=== PATIENT | female | born 1980 | race Caucasian/White ===

== ENCOUNTER 2022-08-11 10:18 | Outpatient (CLI) | payer OTHER | END 2022-08-11 10:19 | disposition home or self-care (01) | LOC: BICMAMMO 10:18 | PROVIDERS: ATTEND Nurse Practitioner Family | DX: N64.89 Other specified disorders of breast (principal); R92.2 Inconclusive mammogram | CPT/HCPCS: G0279 ==

== ENCOUNTER 2025-07-31 10:26 | Outpatient (CLI) | payer OTHER | END 2025-07-31 10:27 | disposition home or self-care (01) | LOC: SCSRAD 10:26 | PROVIDERS: ATTEND Family Medicine | DX: R10.31 Right lower quadrant pain (principal) | CPT/HCPCS: 74019 ==